=== PATIENT | female | born 1985 | race Hispanic/Latino ===

== ENCOUNTER 2016-05-15 06:14 | Inpatient (IN) | payer BC, MEDICAID ==
[2016-05-15] MEDS ORDERED: XYLOCAINE 2% INFILTRATI ONE (06:41)
[2016-05-15] MEDS ORDERED: BRETHINE SUB-Q PRN (06:41)
[2016-05-15] MEDS ORDERED: ePHEDrine SULFATE IV PRN ×2 (06:41→10:00)
[2016-05-15] MEDS ORDERED: SUBLIMAZE IV PRN (06:41)
[2016-05-15] MEDS ORDERED: ZOFRAN IV PRN (06:41)
[2016-05-15] MEDS ORDERED: MINERAL OIL PO PRN (06:41)
[2016-05-15] MEDS ORDERED: PITOCin/NS 30 UNIT/500ML 30 UNITS/500 ML BAG IV SCH (07:00)
[2016-05-15] MEDS ORDERED: PITOCin/NS 20 UNIT/1000ML DRIP 20 UNITS/1,000 ML BAG IV SCH (07:00)
--- NOTE | 2016-05-15 07:00 | History and Physical Report ---
History of Present Illness Date of examination: 05/15/16 (labor) History of present illness: EDC Confirmation: 05/15/2016 Gestational Age: 9 5/7 weeks Past History : 5 Term Births: 3 Premature Births: 0 Living Children: 3 Para: 3 Mult. Births: 0 Prev : 0 Aborta: 1 Elect. Ab: 0 Spont. Ab: 1 Ectopics: 0 # 1 Delivery date: 05/2008 Weeks Gestation: 5 Delivery type: SAB Comments: no d&c # 2 Delivery date: 05/22/2009 Weeks Gestation: 41 labor: no Delivery type: Hours of labor: 24 Anesthesia type: none Delivery location: [facility] Sex: Male weight: 7-3 Name: Hans # 3 Delivery date: 01/04/2012 Weeks Gestation: 40 labor: no Delivery type: Hours of labor: 16 Anesthesia type: iv Delivery location: [facility] Infant Sex: Male weight: 8-9 Name: Roe # 4 Delivery date: 07/2013 Delivery type: SAB Comments: 8 weeks # 5 Delivery date: 09/01/2014 Weeks Gestation: 41 Delivery type: Vaginal Anesthesia type: epidural Infant Sex: male Comments: none Past Medical History: Reviewed history from 08/16/2013 and no changes required: heart murmur Asthma Past Surgical History: Reviewed history from 08/16/2013 and no changes required: Cleft palate repair ear surgery Past Medical History Abnormal PAP: negative Uterine Anomaly: negative Infection History Hx of STD: none Personal hx. of genital herpes: no Partner hx. of genital herpes: no Genetic History Congenital Heart Defect: Mom: no Dad: no Niurka Disease: Mom: no Dad: no Thalassemia Mom: no Dad: no Neural Tube Defect Mom: no Dad: no Down's Syndrome Mom: no Dad: no Moreno-Sachs Mom: no Dad: no Sickle Cell Disease/Trait Mom: no Dad: no Hemophilia Mom: no Dad: no Muscular Dystrophy Mom: no Dad: no Cystic Fibrosis Mom: no Dad: no Cecilio Chorea Mom: no Dad: no Mental Retardation Mom: no Dad: no Fragile X Mom: no Dad: no Other Genetic/Chromosomal Disorder Mom: no Dad: no Child w/other defect Mom: no Dad: no Other: Patient born with cleft palate Active Medications (reviewed today): FORMULA 27-1 MG ORAL TABS ( VIT-FE FUMARATE-FA) 1 po q day as directed PROMETHAZINE HCL 12.5 MG TABS (PROMETHAZINE HCL) 1 po q6 prn nausea FERROUS SULFATE 325 (65 FE) MG TABS (FERROUS SULFATE) 1 po bid PNV () Current Allergies (reviewed today): No known allergies Laboratory Results Date/Time Collected: 10/16/2015 Routine Urinalysis Protein: Negative Glucose: Negative Urine HCG: positive Review of Systems General Complains of fatigue. Denies fever, chills, sweats, anorexia, weakness, malaise, weight loss and sleep disorder. Complains of pelvic pain. Denies vaginal discharge, incontinence, dysuria, hematuria, urinary frequency, amenorrhea, menorrhagia, abnormal vaginal bleeding, genital sores, decreased libido, painful periods, painful sex, urinary urgency, hot flashes, vaginal dryness, vaginal itching and vaginal odor. CV Denies chest pains, palpitations, syncope, dyspnea on exertion, orthopnea, PND and peripheral edema. Resp Denies cough, dyspnea at rest, excessive sputum, hemoptysis, wheezing and pleurisy. GI Complains of nausea. Denies vomiting, diarrhea, constipation, change in bowel habits, abdominal pain, melena, hematochezia, jaundice, gas/bloating, indigestion/heartburn, dysphagia and odynophagia. Breast Complains of breast pain. Denies left breast lump, right breast lump, nipple discharge, bloody discharge from nipple, abnormal mammogram and breast enlargement. Psych Denies depression, anxiety, irritability and mood swings. PHYSICAL EXAM HEENT: normocephalic, no lesions or deformities cleft palate repair Neck/Thyroid: supple, thyroid normal Skin no significant abnormal lesions or rashes Chest: respiratory effort normal, clear to auscultation Breasts: skin/areolae normal, no masses, no nipple discharge, no erythema/warmth /tenderness, and axillae normal. 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 Cervix: normal appearance, no lesions. Uterus: enlarged uterus 8 - 10 weeks size Adnexae: no masses or tenderness Rectovaginal: exam defered Past History - Obstetrical History Expected Date of Delivery: 05/15/16 Actual Gestation: 40 Week(s) 0 Day(s) : 6 Para: 3 Hx # Term Pregnancies: 3 Spontaneous Abortions: 2 Number of Living Children: 3 Medications and Allergies Allergies Allergy/AdvReac Type Severity Reaction Status Date / Time No Known Allergies Allergy Verified 09/01/14 09:01 Home Medications Medication Instructions Recorded Confirmed Last Taken Type Lidocain2.5%/Prilocai2.5% [Emla] 5 gm TP PRN #1 tube 09/03/14 Unknown Rx Active Meds: Active Medications Fentanyl (Sublimaze) 100 mcg IV Q2H PRN PRN Reason: Labor Pain Lactated Ringer's (Lactated Ringers) 1,000 mls @ 125 mls/hr IV DIRECT PREM Oxytocin/Sodium Chloride (Pitocin/Ns 20 Unit/1000ml Drip) 20 units in 1,000 mls @ 125 mls/hr IV DIRECT PREM Oxytocin/Sodium Chloride (Pitocin/Ns 30 Unit/500ml) 30 units in 500 mls @ 4 mls /hr IV Q30MIN PREM PRN Reason: Protocol Mineral Oil (Mineral Oil) 30 ml PO QHS PRN PRN Reason: Constipation Ondansetron HCl (Zofran) 4 mg IV Q8H PRN PRN Reason: Nausea And Vomiting - Vital Signs Vital signs: Vital Signs Pulse BP 78 122/89 05/15/16 06:35 05/15/16 06:35 Temp Pulse Resp BP Pulse Ox 78 122/89 05/15/16 06:35 05/15/16 06:35 - Physical Exam Breasts: Positive: deferred Cardiovascular: Regular rate, Normal S1, Normal S2 Lungs: Positive: Normal air movement Abdomen: Positive: normal appearance, soft, normal bowel sounds. Negative: distention, tenderness Genitourinary (Female): Positive: normal external genitalia, normal perenium Vulva: both: normal Vagina: Positive: normal moisture. Negative: discharge Cervix: Negative: lesion, discharge Uterus: Positive: normal size, normal contour Adnexa: both: normal Anus/Rectum: Positive: normal perianal skin, heme negative. Negative: rectal mass, hemorrhoids Extremities: Positive: normal Deep Tendon Reflex Grade: Normal +2 - Obstetrical FHR: category 1 Uterine Contraction Monitor Mode: External Cervical Dilatation: 4 Cervical Effacement Percentage: 70 station: -1 Uterine Contraction Pattern: Irregular Uterine Contraction Intensity: Mild Results All other labs normal. Laboratory Data-Patient Name: JUAN MORENO Test Date Result Blood Type 11/15/2015 O Rh 11/15/2015 Positive Antibody Screen negative Rubella 11/15/2015 IMMUNE Serology (RPR) 11/15/2015 NR HBsAg 11/15/2015 Negative Hemoglobin 02/14/2016 10.6 Hematocrit 02/14/2016 32.9 Platelets 11/15/2015 330 [id number] Chlamydia DNA 04/10/2016 Negative GC DNA/Culture 04/10/2016 Urine Culture 11/15/2015 Final report Group B Strep cult 04/10/2016 Negative PAP 10/16/2015 Normal, Satisfactory HIV 11/15/2015 AFP/Quad Screen 03/09/2014 Glucola Test 3hr GTT (Fasting) 1 hr 2 hr 3 hr [facility]-Patient Name:JUAN MORENO Test Date Result Varicella Ab Sickle Cell 11/15/2015 Negative PPD Fibronectin Cystic Fibrosis Parvovirus TSH Free T4 Hepatitis C ALT AST Uric Acid Creatinine 24 hr Urine Protein FELIZ Assessment and Plan - Patient Problems (1) Active labor Onset Date: ~05/15/16 Current Visit: Yes Status: Acute Plan to address problem: 30yo @ 40 weeks in labor GBS negative Orders in EMR Anticipate delivery
[2016-05-15] MEDS: LACTATED RINGERS 1,000 ML IV SCH ×2 (07:35→08:45)
[2016-05-15 08:50] LABS: Hematocrit 36.9 % (30.3-42.9); Hemoglobin 12.4 gm/dl (10.1-14.3); Mean Corpuscular HGB Conc 34 % (30-34); Mean Corpuscular Hemoglobin 28 pg (28-32); Mean Corpuscular Volume 83 fl (79-97); Platelet Count 286 K/mm3 (140-440); Red Blood Count 4.42 M/mm3 (3.65-5.03); Red Cell Distribution Width 14.8 % (13.2-15.2); White Blood Count 9.1 K/mm3 (4.5-11.0)
[2016-05-15] MEDS ORDERED: ePHEDrine SULFATE ONE (08:54)
--- NOTE | 2016-05-15 09:31 | Anesthesia Consultation ---
Anesthesia Consult and Med Hx Date of service: 05/15/16 - Airway Anesthetic Teeth Evaluation: Good ROM Head & Neck: Adequate Mental/Hyoid Distance: Adequate Mallampati Class: Class II Intubation Access Assessment: Probably Good - Pulmonary Exam CTA: Yes - Cardiac Exam Cardiac Exam: RRR - Pre-Operative Health Status ASA Pre-Surgery Classification: ASA2 Proposed Anesthetic Plan: Epidural, Spinal - Pulmonary Hx Asthma: Yes (mild) COPD: No Hx Pneumonia: No - Cardiovascular System Hx Hypertension: No - Central Nervous System Hx Seizures: No Hx Psychiatric Problems: No - Endocrine Hx Renal Disease: No Hx End Stage Renal Disease: No Hx Hypothyroidism: No Hx Hyperthyroidism: No - Hematic Hx Anemia: No Hx Sickle Cell Disease: No - Other Systems Hx Alcohol Use: No Hx Obesity: Yes - Additional Comments Anesthesia Medical History Comments: +
[2016-05-15] MEDS ORDERED: NARCAN 2 MG/2 ML IV PRN (10:00)
[2016-05-15] MEDS ORDERED: fentaNYL-BUPIV 2 MCG/ML-0.125% 200 MCG/100 ML BAG EPIDURAL SCH (10:00)
[2016-05-15] MEDS ORDERED: NORCO 5/325 PO PRN (12:02)
[2016-05-15] MEDS ORDERED: DERMOPLAST TP PRN (12:02)
[2016-05-15] MEDS ORDERED: BENADRYL PO PRN (12:02)
[2016-05-15] MEDS ORDERED: LANSINOH TP PRN (12:02)
[2016-05-15] MEDS ORDERED: TYLENOL PO PRN (12:02)
[2016-05-15] MEDS ORDERED: DULCOLAX PR PRN (12:02)
[2016-05-15] MEDS ORDERED: MILK OF MAGNESIA PO PRN (12:02)
[2016-05-15] MEDS ORDERED: PHENERGAN PO PRN (12:02)
[2016-05-15] MEDS ORDERED: TUCKS PAD TP PRN (12:02)
--- NOTE | 2016-05-15 12:18 | Procedure Note ---
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 live born male over intact perineum, CAN X 2 reduced. Cord clamped and cut baby passed to waiting NICU team. Cord blood obt Placenta and membrane del complete and intact, 3 vessel cord. pit IVFs. 8/9, EBL 500, Wgt 7-2. Mom and baby remain LDR stable. Bleeding minimal. - Infant A at 1 minute: 8 at 5 minutes: 9 Gender: Male (wgt 7-2)
[2016-05-15] MEDS ORDERED: SODIUM CHLORIDE FLUSH SYRINGE 10 ML IV NR (13:00)
[2016-05-15] MEDS: MOTRIN PO SCH ×2 (14:01→21:40)
[2016-05-15] MEDS: COLACE PO SCH (21:40)
[2016-05-16 01:12] LABS: Hematocrit 33.5 % (30.3-42.9); Hemoglobin 11.3 gm/dl (10.1-14.3)
[2016-05-16] MEDS: MOTRIN PO SCH ×2 (05:27→13:01)
[2016-05-16] MEDS ORDERED: BOOSTRIX IM ONE (06:00)
[2016-05-16] MEDS ORDERED: M-M-R II VACCINE SUB-Q ONE (06:00)
--- NOTE | 2016-05-16 07:05 | Discharge Summary ---
Providers - Providers Date of Admission: 05/15/16 07:48 Date of discharge: 05/16/16 (Pt desires d/c ) Attending physician: VINCENZO DILL Primary care physician: VINCENZO DILL Hospitalization Reason for admission: active labor Delivery: Episiotomy: none Laceration: none Incision: normal Other procedures: none complications: none Discharge diagnosis: IUP at term delivered baby: male Hospital course: uncomplicated vaginal delivery Pt w/o complaint VSS FF below umb Lochia small perineum intact H&H no drop. Doing well s/p vag delivery P: d/c today with instructions RTO 1 week for circ and 4 weeks for PP visit. Pt desires tubal Condition at discharge: Good Disposition: DISCHARGED TO HOME OR SELFCARE - Discharge Diagnoses (1) Normal spontaneous vaginal delivery Status: Acute Comment: rto 4 weeks PP care Plan - Discharge Medications Prescriptions: Ibuprofen [Motrin 800 MG tab] 800 mg PO TID PRN #30 tablet PRN Reason: Pain Lidocain2.5%/Prilocai2.5% [Emla] 5 gm TP PRN #1 tube - Provider Discharge Summary Activity: routine, no sex for 6 weeks, no heavy lifting 4 weeks, no strenuous exercise Diet: routine Instructions: routine Additional instructions: [] Smoking cessation referral if applicable(refer to patient education folder for contact #) [] Refer to [facility]'s [facility] Booklet Call your doctor immediately for: * Fever > 100.5 * Heavy vaginal bleeding ( >1 pad per hour) * Severe persistent headache * Shortness of breath * Reddened, hot, painful area to leg or breast * Drainage or odor from incision. * Keep incision clean and dry at all times and follow doctor's instructions regarding bathing/showering - Follow up plan Follow up: VINCENZO DILL MD [Primary Care Provider] - 7 Days (Congratulations! Please call [phone] to schedule your visit in 4 weeks and your son's circumcision in 1 week. Bring the EMLA cream with you to his visit. Do NOT use at home. Take medications as prrescribed. Call with concerns. )
[2016-05-16] MEDS ORDERED: PRENATAL VITAMIN PO SCH (10:00)
--- NOTE | 2016-05-16 10:13 | Progress Note ---
Subjective Date of service: 05/16/16 Interval history: 1st day after normal vaginal delivery Patient is in the bed, comfortable. Pain is well controlled with pain meds. Ambulated well. No residual neurological deficit. No anesthesia complications Objective - Constitutional Vitals: Vital Signs - 12hr 05/15/16 05/16/16 23:35 08:05 Temperature 97.7 F 97.7 F Pulse Rate [ 68 68 From Monitor] Respiratory 20 18 Rate Blood Pressure 126/73 [Left Arm] Blood Pressure 128/87 [Right Arm] - Labs CBC & Chem 7: 05/16/16 00:35
[2016-05-16] MEDS ORDERED: FLUARIX QUAD 2016-2017(36 MOS+) IM ONE (12:00)
[2016-05-16] MEDS: COLACE PO SCH (13:02)
[2016-05-16 17:43] VITALS: BP 100/64
== END 2016-05-16 18:35 | disposition home or self-care (01) | DRG 775 ==
LOC: TRG 06:14 → LD 07:48 → OB 15:12
PROVIDERS: ADMIT Obstetrics & Gynecology; ATTEND Obstetrics & Gynecology
PROC: 10E0XZZ Delivery of Products of Conception, External Approach (ICD-10-PCS; principal; 2016-05-15)
PROC: 10907ZC Drainage of Amniotic Fluid, Therapeutic from Products of Conception, Via Natural or Artificial Opening (ICD-10-PCS; 2016-05-15)
PROC: 3E0S3CZ (ICD-10-PCS; 2016-05-15)
PROC: 00HU33Z Insertion of Infusion Device into Spinal Canal, Percutaneous Approach (ICD-10-PCS; 2016-05-15)
PROC: 3E0234Z Introduction of Serum, Toxoid and Vaccine into Muscle, Percutaneous Approach (ICD-10-PCS; 2016-05-16)
DX: O77.0 Labor and delivery complicated by meconium in amniotic fluid (principal); O69.1XX0 Labor and delivery complicated by cord around neck, with compression, not applicable or unspecified; O99.214 Obesity complicating childbirth; E66.9 Obesity, unspecified; O99.52 Diseases of the respiratory system complicating childbirth; J45.909 Unspecified asthma, uncomplicated; Z3A.40 40 weeks gestation of pregnancy; Z37.0 Single live birth; Z68.30 Body mass index [BMI] 30.0-30.9, adult; Z23 Encounter for immunization
CPT/HCPCS: 36415; 85014; 85018; 85027; 86592; 86850; 86900; 86901; 90471; 90715; J2590; J7120

== ENCOUNTER 2016-07-05 08:21 | Day surgery (SDC) | payer BC, MEDICAID ==
--- NOTE | 2016-07-04 11:03 | History and Physical Report ---
History of Present Illness Date of examination: 07/01/16 History of present illness: Patient has been reassessed/reevaluated. H&P has been reviewed. No interval changes. Patient desires sterilization.Discuss the permanency of sterilization. High risk of regret and 0.5 to 1% risk of failure. Discussed the different risk of abdominal versus vaginal approaches. Information given patient desires laparoscopic tubal ligation Vital Signs: Patient Profile: 30 Years Old Female Height: 61 inches (154.94 cm) Weight: 149 pounds BMI: 28.15 Current Method of Contraception: Condoms Date of Last Pap Smear: 10/16/2015 Past History : 6 Term Births: 4 Premature Births: 0 Living Children: 4 Para: 4 Mult. Births: 0 Prev : 0 Aborta: 2 Elect. Ab: 0 Spont. Ab: 2 Ectopics: 0 # 1 Delivery date: 05/2008 Weeks Gestation: 5 Delivery type: SAB Comments: no d&c # 2 Delivery date: 05/22/2009 Weeks Gestation: 41 labor: no Delivery type: Hours of labor: 24 Anesthesia type: none Delivery location: [facility] Sex: Male weight: 7-3 Name: Hans # 3 Delivery date: 01/04/2012 Weeks Gestation: 40 labor: no Delivery type: Hours of labor: 16 Anesthesia type: iv Delivery location: [facility] Infant Sex: Male weight: 8-9 Name: Roe # 4 Delivery date: 07/2013 Delivery type: SAB Comments: 8 weeks # 5 Delivery date: 09/01/2014 Weeks Gestation: 41 Delivery type: Vaginal Anesthesia type: epidural Sex: male Comments: none # 6 Delivery date: 05/15/2016 Weeks Gestation: 40 Delivery type: Vaginal Anesthesia type: epidural Delivery location: [facility] Sex: male weight: 7.13 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 of genital herpes: no Partner hx. of genital herpes: no Hx of STD: none Current Allergies (reviewed today): No known allergies Past Medical History: heart murmur Asthma Past Surgical History: Cleft palate repair ear surgery Risk Factors: Smoked Tobacco Use: Never smoker Smokeless Tobacco Use: Never Drug use: no HIV high-risk behavior: no Alcohol use: no Exercise: no Seatbelt use: 100 % PAP Smear History: Date of Last PAP Smear: 10/16/2015 Review of Systems General Denies fever, chills, sweats, anorexia, fatigue, weakness, malaise, weight loss and sleep disorder. Denies vaginal discharge, incontinence, dysuria, hematuria, urinary frequency, amenorrhea, menorrhagia, abnormal vaginal bleeding, pelvic pain, genital sores, decreased libido, painful periods, painful sex, urinary urgency, hot flashes, vaginal dryness, vaginal itching and vaginal odor. CV Denies chest pains, palpitations, syncope, dyspnea on exertion, orthopnea, PND and peripheral edema. Resp Denies cough, dyspnea at rest, excessive sputum, hemoptysis, wheezing and pleurisy. GI Denies nausea, vomiting, diarrhea, constipation, change in bowel habits, abdominal pain, melena, hematochezia, jaundice, gas/bloating, indigestion/ heartburn, dysphagia and odynophagia. Breast Denies left breast lump, right breast lump, nipple discharge, bloody discharge from nipple, breast pain, abnormal mammogram and breast enlargement. Psych Denies depression, anxiety, irritability and mood swings. Past History Past Medical History: other (See HPI) Social history: other (See HPI) Family history: other (See HPI) Medications and Allergies Allergies Allergy/AdvReac Type Severity Reaction Status Date / Time No Known Allergies Allergy Verified 09/01/14 09:01 Home Medications Medication Instructions Recorded Confirmed Last Taken Type Iron 18 mg PO QDAY 06/28/16 06/28/16 Unknown History Active Meds: Active Medications Sodium Chloride (Nacl 0.9% 1000 Ml) 1,000 mls @ 150 mls/hr IV DIRECT PREM Review of Systems Constitutional: other (See HPI) Exam - Physical Exam Narrative exam: HEENT: s/p cleft palate repair Neck/Thyroid: supple, thyroid normal Skin no abnormal lesions or rashes Chest: respiratory effort normal, clear to auscultation Breasts: skin/areolae normal, no masses, no nipple discharge, no erythema/warmth /tenderness, and axillae normal. 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 Cervix: normal appearance, no lesions. Uterus: enlarged uterus 8 - 10 weeks size Adnexae: no masses or tenderness Rectovaginal: exam defered Results - Labs CBC & Chem 7: 07/05/16 09:56 Assessment and Plan - Patient Problems (1) Encounter for sterilization Current Visit: Yes Status: Acute Plan to address problem: Discuss the risks of the surgery including infection, bleeding possibly heavy enough to require a blood transfusion, possible damage to adjacent organs. Discuss permanent nature of the procedure and the 1% failure rate. Discuss of possibility of laparotomy needed. Questions answered. Patient desires to proceed
[~2016-07-05 08:21] MED LIST: NACL 0.9% 1000 ML 1,000 ML IV SCH; NORCO 5/325 PO PRN; PEPCID PO NR; VERSED IV NR; ZOFRAN IV PRN
--- NOTE | 2016-07-05 09:18 | Anesthesia Day of Surgery ---
Anesthesia Day of Surgery - Day of Surgery Patient Examined: Yes Patient H&P Reviewed: Yes Patient is NPO: Yes
--- NOTE | 2016-07-05 09:18 | Anesthesia Consultation ---
Anesthesia Consult and Med Hx Date of service: 07/05/16 - Airway Anesthetic Teeth Evaluation: Good ROM Head & Neck: Adequate Mental/Hyoid Distance: Inadequate Mallampati Class: Class III Intubation Access Assessment: Possibly Difficult (small chin, small mouth opening,) - Pulmonary Exam CTA: Yes - Cardiac Exam Cardiac Exam: RRR - Pre-Operative Health Status ASA Pre-Surgery Classification: ASA2 Proposed Anesthetic Plan: General - Pre-Anesthesia Comment Pre-Anesthesia Comments: hx of ear surgery and cleft palate repair - Pulmonary Hx Smoking: Yes (quit 10 years ago) Hx Asthma: Yes (last treated 10 yrs ago) COPD: No Hx Pneumonia: No - Cardiovascular System Hx Hypertension: No Hx Heart Attack/AMI: No Hx Heart Murmur: Yes (as a child) - Central Nervous System Hx Seizures: No CVA: No Hx Psychiatric Problems: No - Endocrine Hx Renal Disease: No Hx End Stage Renal Disease: No Hx Hypothyroidism: No Hx Hyperthyroidism: No - Hematic Hx Anemia: No Hx Sickle Cell Disease: No - Other Systems Hx Alcohol Use: Yes (occas) Hx Cancer: No Hx Obesity: Yes - Additional Comments Anesthesia Medical History Comments: NAC
[2016-07-05 10:18] LABS: Hematocrit 37.3 % (30.3-42.9); Hemoglobin 12.3 gm/dl (10.1-14.3)
[2016-07-05] MEDS ORDERED: XYLOCAINE MPF 2% ONE (10:57)
[2016-07-05] MEDS ORDERED: ZEMURON IV ONE (10:57)
[2016-07-05] MEDS ORDERED: DIPRIVAN 10 MG/ML IV ONE (10:57)
[2016-07-05] MEDS ORDERED: DILAUDID ONE (10:59)
[2016-07-05] MEDS ORDERED: MARCAINE 0.5% 30 ML INFILTRATI ONE (11:28)
[2016-07-05] MEDS ORDERED: MARCAINE 0.5% INFILTRATI ONE ×2 (11:41)
[2016-07-05] MEDS ORDERED: QUELICIN ONE (11:45)
[2016-07-05] MEDS ORDERED: ZOFRAN ONE (11:46)
[2016-07-05] MEDS ORDERED: NEOSTIGMINE ONE (11:46)
[2016-07-05] MEDS ORDERED: ROBINUL ONE (11:46)
[2016-07-05] MEDS ORDERED: NACL 0.9% 1000 ML 1,000 ML ONE (12:05)
--- NOTE | 2016-07-05 12:09 | Operative Report ---
Operative Report Operative Report: Pre-operative diagnosis: Patient desires permanent sterilization Post-operative diagnosis: Same Procedure name(s): Laparoscopic bilateral tubal ligation with Falope-Rings Surgeon: Melecio Stroud MD Net Application Architect: [] Anesthesia: General endotracheal EBL: Minimal Complications: None Findings: Patient with uterus approximately 8-10 weeks in size normal fallopian tubes bilaterally Specimen(s): None Patient was brought in the operating room. General anesthesia was induced without difficulty. She was placed in dorsal lithotomy position. Prepped and draped in usual sterile manner. Her urinary bladder with was emptied with a red rubber catheter. Hulka uterine manipulator was placed without difficulty. Attention was then switched to the patient's abdomen. An infra-umbilical incision was made with a scalpel. This incision was spread with a hemostat. A 5 mm trocar was placed in this incision while lifting high the abdominal wall. Intra-abdominal presence was verified directly with the laparoscope. The patient was then insufflated to approximately 3 L of CO2 gas. The patient's findings as noted above. An accessory puncture was made suprapubically. The 8 mm trocar was placed through this incision under direct visualization with no evidence of internal organ damage. Each of the fallopian tube were identified by its fimbriated end. A portion approximately 1-2 cm from each cornua was grasped with the Falope ring applicator. Falope-Rings were placed without any difficulty bilaterally. At this time all instruments were removed. The patient was insufflated. The skin incisions were closed subcuticular with 4-0 Vicryl. Marcaine was given subcuticularly for postoperative pain relief. The patient tolerated procedure well. She was awakened in the operating room and accompanied to the recovery room in good condition.
[2016-07-05] MEDS: DILAUDID IV PRN ×2 (12:26→12:36)
[2016-07-05] MEDS ORDERED: PERCOCET 5/325 PO PRN (12:37)
--- NOTE | 2016-07-05 13:00 | Post Anesthesia Evaluation ---
- Post Anesthesia Evaluation Patient Participated: Yes Airway Patent: Yes Stable Respiratory Function: Yes Temp > 96.8F: Yes Pain Manageable: Yes Adequeate Hydration: Yes Anesthesia Complications: No Block Receding Appropriately: Not Applicable
[2016-07-05 14:00] VITALS: BP 132/78
== END 2016-07-05 14:00 | disposition home or self-care (01) ==
LOC: OR 08:21
PROVIDERS: ATTEND Obstetrics & Gynecology
DX: Z30.2 Encounter for sterilization (principal); J45.909 Unspecified asthma, uncomplicated; E66.9 Obesity, unspecified; Z68.28 Body mass index [BMI] 28.0-28.9, adult; Z98.890 Other specified postprocedural states; Z87.891 Personal history of nicotine dependence; Z72.89 Other problems related to lifestyle
CPT/HCPCS: 36415; 58671; 81025; 85014; 85018; J0330; J1170; J2250; J2405; J2704; J2710; J7030